=== PATIENT | male | born 1970 | race Caucasian/White ===

== ENCOUNTER 2020-06-09 11:26 | Emergency (ER) | payer MEDICAID ==
[~2020-06-09] VITALS: Ht 180.3 cm; Wt 90.0 kg
[~2020-06-09 11:26] MED LIST: HYDR-4383 PO; LIDOcaine 1% W/epiNEPHrine 1:200,000 10ml vial ONE
[2020-06-09 11:52] VITALS: BP 125/80
[2020-06-09] MEDS ORDERED: LORazepam 2 mg/ml vial IM ONE (15:15)
[2020-06-09] MEDS ORDERED: TETanus/Pertussis (Acell)/Diphther VAC/PF (Tdap-Adult) 0.5ml syringe IMVAC ONE (15:25)
[2020-06-09] MEDS ORDERED: bacitracin 15gm ointment TP ONE (15:25)
[2020-06-09] MEDS ORDERED: HYDROcodone/acetaminophen 10/325mg tab PO ONE (15:25)
[2020-06-09] MEDS ORDERED: ceFAZolin 1gm IM kit IM ONE (16:00)
--- NOTE | 2020-06-09 16:59 | NUR ---
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
[2020-06-09] MEDS ORDERED: ONDA4TAB6 PO (17:04)
[2020-06-09] MEDS ORDERED: HYDR-4383 PO (17:04)
[2020-06-09] MEDS ORDERED: CEPH250T PO (17:04)
== END 2020-06-09 17:36 | disposition home or self-care (01) ==
LOC: ER 11:26
DX: S62.637A Displaced fracture of distal phalanx of left little finger, initial encounter for closed fracture (principal); S61.213A Laceration without foreign body of left middle finger without damage to nail, initial encounter; S61.211A Laceration without foreign body of left index finger without damage to nail, initial encounter; S61.215A Laceration without foreign body of left ring finger without damage to nail, initial encounter; S61.217A Laceration without foreign body of left little finger without damage to nail, initial encounter; Z88.8 Allergy status to other drugs, medicaments and biological substances; Z79.899 Other long term (current) drug therapy; W27.8XXA Contact with other nonpowered hand tool, initial encounter; Y93.89 Activity, other specified; Y92.89 Other specified places as the place of occurrence of the external cause; Y99.8 Other external cause status
CPT/HCPCS: 12004; 73140; 90471; 90715; 96372; 99284; J0690; J2060

== ENCOUNTER 2020-07-09 14:57 | Emergency (ER) | payer MEDICAID ==
[~2020-07-09] VITALS: Ht 180.3 cm; Wt 80.0 kg
[~2020-07-09 14:57] MED LIST changes: -LIDOcaine 1% W/epiNEPHrine 1:200,000 10ml vial ONE; +ONDA4TAB6 PO
--- NOTE | 2020-07-09 16:40 | NUR ---
Pt reports he is having too much pain and asked for pain medication prior to removing any more sutures from the left fingers.
[2020-07-09] MEDS ORDERED: LIDOcaine 1% 30ml preserv. free vial IJ STA (17:29)
[2020-07-09] MEDS ORDERED: CEPH500C5 PO (17:50)
[2020-07-09] MEDS ORDERED: sulfamethoxazole/trimethoprim DS (800/160mg) tablet PO ONE (17:50)
[2020-07-09] MEDS ORDERED: SULF1TAB49 PO (17:50)
[2020-07-09] MEDS ORDERED: cephalexin 250mg capsule PO ONE (17:50)
[2020-07-09 18:15] VITALS: BP 115/80
== END 2020-07-09 18:20 | disposition home or self-care (01) ==
LOC: ER 14:59
DX: S61.412D Laceration without foreign body of left hand, subsequent encounter (principal); F17.200 Nicotine dependence, unspecified, uncomplicated; F12.90 Cannabis use, unspecified, uncomplicated; Z85.9 Personal history of malignant neoplasm, unspecified; Z98.890 Other specified postprocedural states; Z88.8 Allergy status to other drugs, medicaments and biological substances; Z79.2 Long term (current) use of antibiotics; Z79.899 Other long term (current) drug therapy; X58.XXXD Exposure to other specified factors, subsequent encounter
CPT/HCPCS: 10061; 99283; 99284

== ENCOUNTER 2020-07-10 16:47 | Emergency (ER) | payer MEDICAID ==
[~2020-07-10] VITALS: Ht 180.3 cm; Wt 80.3 kg
[~2020-07-10 16:47] MED LIST changes: +CEPH500C5 PO; +SULF1TAB49 PO
[2020-07-10 16:53] VITALS: BP 103/73
== END 2020-07-10 18:29 | disposition home or self-care (01) ==
LOC: ER 16:47
DX: S61.412D Laceration without foreign body of left hand, subsequent encounter (principal); F12.90 Cannabis use, unspecified, uncomplicated; Z85.9 Personal history of malignant neoplasm, unspecified; Z98.890 Other specified postprocedural states; Z88.8 Allergy status to other drugs, medicaments and biological substances; Z79.2 Long term (current) use of antibiotics; Z79.899 Other long term (current) drug therapy; X58.XXXD Exposure to other specified factors, subsequent encounter
CPT/HCPCS: 99281